=== PATIENT | female | born 1960 | race Caucasian/White ===

== ENCOUNTER 2021-09-07 09:54 | Emergency (ER) | payer OTHER ==
[~2021-09-07] VITALS: Ht 152.4 cm; Wt 59.0 kg
[~2021-09-07 09:54] MED LIST: CIPRO500 MG PO; Flomax0.4 MG PO; GENT.3OPSA OD; HYDACE5 PO; IBUP800 PO; Keflex500 MG PO; Percocet 10-321 EACH PO; TRAV.004OP BOTHEYES; Zofran4 MG PO; Zofran8 MG PO; [UNRECOGNIZED DRUG - OTHER]
== END 2021-09-07 11:32 | disposition home or self-care (01) ==
LOC: ER 09:54
DX: S83.8X2A Sprain of other specified parts of left knee, initial encounter (principal); X50.1XXA Overexertion from prolonged static or awkward postures, initial encounter
CPT/HCPCS: 73562-LT; 99283-25